=== PATIENT | male | born 1985 | race Caucasian/White ===

== ENCOUNTER 2024-04-02 00:27 | Emergency (ER) | payer BC ==
[~2024-04-02] VITALS: Ht 182.9 cm; Wt 91.0 kg
[2024-04-02 01:01] VITALS: TEMP 98.5; O2SAT 97
[2024-04-02] MEDS: TETANUS, DIPHTHERIA, PERTUSSIS VAC/PF 0.5ML (>10YR OLD) IM ONE (02:44)
[2024-04-02] MEDS: LIDOCAINE HCL/PF 1% 10 MG/ML 5ML VIAL INFIL ONE (02:55)
[2024-04-02 03:50] VITALS: BP 134/89; PULSE 60; RESP 20
== END 2024-04-02 03:51 | disposition home or self-care (01) ==
LOC: EDBD 00:27 → ER 00:27
DX: S51.811A Laceration without foreign body of right forearm, initial encounter (principal); W18.30XA Fall on same level, unspecified, initial encounter; Y93.22 Activity, ice hockey; Y92.89 Other specified places as the place of occurrence of the external cause; Y99.8 Other external cause status
CPT/HCPCS: 90715; 12001; 90471; 99283; Z7610; J3490